=== PATIENT | female | born 1975 | race American Indian/Alaskan Native ===

== ENCOUNTER 2016-09-05 06:27 | Day surgery (SDC) | payer MEDICARE | END 2016-09-05 06:28 | disposition home or self-care (01) | LOC: OPU 06:27 → EDSTATUS 08:30 | PROVIDERS: ATTEND Internal Medicine Hematology & Oncology | DX: C50.811 Malignant neoplasm of overlapping sites of right female breast (principal); I82.621 Acute embolism and thrombosis of deep veins of right upper extremity; Z53.8 Procedure and treatment not carried out for other reasons ==

== ENCOUNTER 2016-09-11 12:29 | Outpatient (CLI) | payer MEDICARE | END 2016-09-11 12:30 | disposition home or self-care (01) | LOC: PET 12:29 | PROVIDERS: ATTEND Internal Medicine Hematology & Oncology | DX: C50.811 Malignant neoplasm of overlapping sites of right female breast (principal); I82.621 Acute embolism and thrombosis of deep veins of right upper extremity; M25.511 Pain in right shoulder | CPT/HCPCS: 82962 ==

== ENCOUNTER 2016-09-17 07:51 | Day surgery (SDC) | payer MEDICARE ==
[2016-09-17 08:49] LABS: Basophils % (Auto) 0.4 % (0.0-1.8); Eosinophils % (Auto) 3.2 % (0.0-4.3); Mean Corpuscular HGB Conc 32 % (30-34); Mean Corpuscular Volume 80 fl (79-97); Platelet Count 575 K/mm3 (140-440); Red Blood Count 3.48 M/mm3 (3.65-5.03); White Blood Count 13.7 K/mm3 (4.5-11.0)
[2016-09-17 08:54] LABS: Mean Corpuscular Hemoglobin 26 pg (28-32)
[2016-09-17 09:01] LABS: INR 1.31 (0.87-1.13)
[2016-09-17] MEDS ORDERED: VERSED IV ONE (12:00)
[2016-09-17] MEDS ORDERED: SUBLIMAZE IV ONE (12:00)
[2016-09-17] MEDS ORDERED: BENADRYL ONE ×2 (12:31→12:43)
[2016-09-17] MEDS ORDERED: BENADRYL IV ONE ×2 (12:52→12:54)
--- NOTE | 2016-09-17 14:00 | Cat Scan Report ---
CT BIOPSY LYMPH NODE SUPERFICIAL RIGHT History: Right supraclavicular mass. Breast cancer. Description of procedure: Informed consent was obtained. Sterile technique was utilized. 1% lidocaine for skin anesthesia. Conscious sedation was accomplished with Versed, fentanyl and Benadryl. Independent cardiorespiratory monitoring by RN. The patient was sedated for 20 minutes. Intra-observer time was [address] guidance, a 17-gauge introducer needle was advanced to the leading edge of an approximate 4 cm right supraclavicular mass. Three 18-gauge core biopsies were obtained. The samples were deemed adequate by the pathologist on site. No complications. Impression: Successful CT-guided biopsy of the right supraclavicular mass.
[2016-09-17 16:06] VITALS: BP 134/97
== END 2016-09-17 15:30 | disposition home or self-care (01) ==
LOC: OPU 07:51
PROVIDERS: ATTEND Internal Medicine Hematology & Oncology
DX: R22.1 Localized swelling, mass and lump, neck (principal); C50.811 Malignant neoplasm of overlapping sites of right female breast
CPT/HCPCS: 36415; 38505; 77012; 85025; 85610; 88173; 88305; 88333; 88342; 96374; J1200; J2250; J3010

== ENCOUNTER 2016-09-23 15:37 | Emergency (ER) | payer MEDICARE ==
[2016-09-23 16:20] VITALS: BP 144/103
--- NOTE | 2016-09-23 17:32 | Emergency Department Report ---
Entered by HONEY BATISTA, acting as scribe for DONNA SANCHES PA. Chief Complaint: Weakness Stated Complaint: WEAKNESS/DIARRHEA Time Seen by Provider: 09/23/16 17:05 - HPI History of Present Illness: 41 y/o female with PMHx of breast cancer, DM, and HTN, and PSHx of right breast lumpectomy, right breast masectomy with reconstruction, small bowel repair, tubal ligation, and D&C, presents ot the ED c/o generalized weakness of unknown onset. Associated symptoms of nausea, decreased appetite, and diarrhea. Noted the patient had a biopsy done last week from the neck due to suspection of cancer reoccurrence. 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 Tertiary c/o suicidal ideation with plan, patient states that she thought about drowning herself in the tub yesterday. Noted the patient is currently on zarelto due to blood clots in the right arm. No other complaints. - Exam Vital Signs: Vital Signs 09/23/16 16:14 Temperature 98.7 F Pulse Rate 126 H Respiratory 18 Rate Blood Pressure 144/103 O2 Sat by Pulse 98 Oximetry Physical Exam: Constitutional: Non toxic appearing, NAD. Cardiovascular: Normal rate and rhythm with normal S1/S2 sounds. Respiratory: No respiratory distress. Lung sounds clear to auscultation bilaterally. Musculoskeletal/Extremity: 2+ right radial pulses, right arm tenderness to palpation, right upper extremity swelling, no erythema noted in the affected area. MSE screening note: Focused history and physical exam performed. Due to findings the following was ordered: ED Medical Decision Making - Medical Decision Making Alert and oriented x3. Patient was ordered RUE US. No acute distress, patient is stable. ED Disposition for MSE Condition: Stable Referrals: PRIMARY CARE,MD [Primary Care Provider] - 3-5 Days This documentation as recorded by the scribe,HONEY BATISTA,accurately reflects the service I personally performed and the decisions made by ,DONNA SANCHES PA.
--- NOTE | 2016-09-29 00:33 | ED Elopement Review ---
ED Pt Elopement review - Call Back decision Pt Call Back Decision: Call pt to return to ED SATHYA (weakness with tachycardia of 1 26 bpm needs to be evaluated. Patient also reports suicidal ideation with plan to drove herself and that of. Charge nurse Donald was notified at 00:34 of The patient's suicidal ideation and the need for patient to return to the ED)
== END 2016-09-23 18:00 | disposition left against medical advice (07) ==
LOC: ED 15:37
DX: R53.1 Weakness (principal); R11.0 Nausea; R19.7 Diarrhea, unspecified; E11.9 Type 2 diabetes mellitus without complications; I10 Essential (primary) hypertension; Z53.21 Procedure and treatment not carried out due to patient leaving prior to being seen by health care provider

== ENCOUNTER 2016-12-18 11:33 | Outpatient (CLI) | payer MEDICARE ==
--- NOTE | 2016-12-20 11:56 | PET Report ---
PET/CT:12/18/16 11:33:00 CLINICAL: Right breast cancer restaging. RADIOPHARMACEUTICAL: 13.96mCi F18-FDG. COMPARISON: 11/09/14 PET/CT TECHNIQUE- Following intravenous injection of F-18 FDG and an approximately 60 minute uptake period, CT and PET images from the mid skull to below the kidneys were acquired with the patient in the fasted state. No contrast was administered. The CT images extend through the pelvis but the PET images extend only through the kidneys. The patient stopped the examination before a full complement of PET images were obtained. The CT protocol used for this PET CT study is designed for attenuation correction and anatomic localization of PET abnormalities. This sewer repairer CT is not desired to produce and cannot replace, [id number] diagnostic CT scans with specific imaging protocols for different body parts and indications. Plasma glucose at the time of this test: 104g/dl. The standardized uptake values (SUV) are normalized to patient body weight and indicate the highest activity concentration (SUV max) in a given disease site. FINDINGS: Brain--Physiologic FDG uptake in the visualized regions of the brain. Neck--Physiologic FDG uptake in the mucosal structures. Chest--Status post right mastectomy and flap reconstruction. A large FDG avid right chest wall mass extends from the supraclavicular space to the inferior to the scapula. The mass fills the space between ribs and scapula and measures approximately 13 cm in length. It measures approximately 10.5 cm transverse dimension by 8.8 cm AP dimension with SUV 11.5. Physiologic FDG uptake in mediastinal blood pool and myocardium. Lungs--No abnormal uptake. No pulmonary nodule or mass. Pleura/pericardium--No abnormal uptake. Thoracic nodes--Three FDG avid right axillary lymph nodes. The largest measures 3.0 x 2.4 cm with SUV 9.5. Hepatobiliary--No abnormal uptake. Liver background SUV mean, as a reference for comparing FDG studies, is 4.3 compared 4.4 on the last exam. No liver mass. Spleen--No abnormal uptake. Pancreas--No abnormal uptake. Adrenal Glands--No abnormal uptake. Kidneys/Ureters/Bladder--No abnormal uptake. Abdominopelvic Nodes--No lymphadenopathy. PET images do not include the entire abdomen or the pelvis. Bowel/Peritoneum/Mesentery--No abnormal uptake. PET images do not include the entire abdomen or the pelvis. Pelvic organs--PET images do not include the pelvis. Bones/Soft Tissues--No abnormal uptake. No suspicious bone lesions. IMPRESSION- 1. Right chest wall recurrence with a 13 cm FDG avid chest wall mass. 2. FDG avid right axillary haley recurrence. 3. No evidence of hepatic or skeletal metastasis. 4. PET images do not include the entire abdomen or the pelvis.
== END 2016-12-18 11:34 | disposition home or self-care (01) ==
LOC: PET 11:33
PROVIDERS: ATTEND Internal Medicine Hematology & Oncology
DX: C50.811 Malignant neoplasm of overlapping sites of right female breast (principal); I10 Essential (primary) hypertension; D64.9 Anemia, unspecified; F32.9 Major depressive disorder, single episode, unspecified; Z79.899 Other long term (current) drug therapy; Z90.11 Acquired absence of right breast and nipple
CPT/HCPCS: 78815; 82962; A9552